=== PATIENT | female | born 1975 | race Caucasian/White ===

== ENCOUNTER 2021-11-28 12:48 | Inpatient (IN) | payer BC ==
[~2021-11-28] VITALS: Ht 157.5 cm; Wt 2.0 kg
--- NOTE | 2021-11-28 12:55 | NUR ---
SE RECIBE PTE ALERTA Y ORIENTADA X3 EN AMBULANCIA PARAMEDICOS REFIEREN QUE LA BUSCARON EN EL [facility] ,LA PTE REFIERE ESTAR MAREADA ,CAMINANDO CON DIFICULTAD.
--- NOTE | 2021-11-28 15:20 | NUR ---
PTE EVALUADA POR DRA. BARKER. MS. BHAT ORIENTA PTE SOBRE TRATAMIENTO A SEGUIR, EL CUAL REFIERE ENTENDER. LA MISMA COLECTA MUESTRAS Y CANALIZA PTE UTILIZANDO MEDIDAS ASEPTICAS, ADMINISTRA MEDICAMENTOS STEPHEN ORDEN MEDICA. PEND A REALIZAR CT .
--- NOTE | 2021-11-28 16:04 | NUR ---
MUESTRAS HEMOLIZADAS STEPHEN PERSONAL DE LABORATORIO. SE EXTRAEN MUESTRAS DE LAB [place] Y ESTAS SON ENVIADAS. PT EN CAMA EN ESPERA DE RESULTADOS DE LAB.
--- NOTE | 2021-11-28 22:02 | NUR ---
SE COORDINA MRI DE KUNAL CON EL CUAL AUTORIZA EL MISMO. SE NOTIFICA A SARA.
--- NOTE | 2021-11-28 22:50 | NUR ---
PERSONAL DE TETO INDICA QUE PTE NO RESPONDE.SE UBICA A PTE EN AREA DE DOLOR DE PECHO, SE CONECTA A MONITOR CARDIACO Y OXIMETRIA DE PULSO. S/V: B/P:198/110MMHG, P:127/MIN, R:0,SO2:77%. SE COMIENZA A VENTILAR. ORDENA INTUBACION. NOTIFICA A PERSONAL DE ANESTESIA. SE CONTINUA VENTILANDO A LA PTE. 2207PM- (PERSONAL DE ANESTESIA) INTUBA OROTRAQUEAL CON TUBO 7.0 ASISTIDO POR PERSONAL DE TERAPIA RESPIRATORIA JOHN Y ZULEIMA LOS CUALES CONECTAN AL VENTILADOR MECANICO CON LOS SIGUIENTES PARAMETROS: VT:500, R:16, PEEP:5, FIO2:100%. SE ENTREGA PTE A .
--- NOTE | 2021-11-29 01:22 | NUR ---
11PM-SE RECIBE PTE FEMENINA CONECTADA A MONIOR CARDIACO APOLONIA Y OXIMETRIA CONTINUA,ESTA NO RESPONDE A ESTIMULOS NI DOLOR,NI CORNEAL, BARNES REACCION PUPILAR MIDRIATICA,SE ECUENTRA CON TUBO OROTRAQUEAL #7 A 20 A LABIO.CON PARAMETROS ( VY-500,MODO-A/C,PEEP-5,RATE-6,FO2-100%). 1130PM-A REALIZA ORDENES Y SE COLOCA RUSSELL SIGUIENDO MEDOIDAS ASEPTICAS,SE COLOCA NGT CON SUCCION INTERMITENTE #18 EN KAREN LEXI.SE CANALIZA Y COLOCAN 3 VENOPUNCIONES EN PERIFERAL IZQUIERDA PATENTES LIBRES DE EDEMA Y ENROJECIMIENTO.SE COLOCAN RESTRIICIONES. 1AM-SE LE NOTIFICA A B/P DE PTE().THALIA REALIZA ORDEN DE LEVOPHED 8MG/250@10ML/HR EL CUAL SE COLOCA,PERONAL DE TERAPIA RSPIRATORIA ZULEIMA LE REALIZA ABG A PTE.
--- NOTE | 2021-11-29 05:29 | NUR ---
SE MANTIENE A PTE REALIZANDO S/V CADA 1 HR Y NOTIFICANDO A ,SE COMIENZA A PTE A REALIZAR CAMBIOS DE POSION CADA 2HRS,PTE CON RUSSELL,SE NOTIFICA A SE OBSERVA A PTE CON EDEMA EN EL BONNIE LADO LEXI,SE MANTIENE A PTE EN VIGILANCIA APOLONIA POR CAMBIOS.
--- NOTE | 2021-11-29 07:36 | NUR ---
SE RECIBE PACIENTE FEMENINA DE 46 ANOS DE EDAD EN CAMA CON BARANDAS ELEVADAS EN POSICION SEMI SENTADA. PACIENTE ENTUBADA CON TUBO OROTRAQUEAL #7 FIJADO A 20CM. CONECTADA A MONITOR CARDIACO, SATUROMETRIA APOLONIA, NASOGASTRICO EN FOSA NASAL IZQUIERDA CON SUCCION INTERMITENTE EL CUAL SE OBSERVA CON SECRESIONES DE COLOR SHELBY. AREA DE VENOPUNCION PATENTE EN MANO IZQUIERDA CON ANGIO #20 BAJANDO UN 0.9NSS A 175ML POR HORA Y LEVOPHED 8MG/250ML A 10ML POR HORA MARIA EUGENIA DE EDEMAS Y ENROJECIMIENTO. PACIENTE NO REACCIONA A ESTIMULOS FISICOS NI VERBALES. PACIENTE NO PRESENTA REACCION PUPILAR. PACIENTE SE OBSERVA CON BONNIE EDEMATOSO. SE OBSERVA RUSSELL INSERTADO CON RETORNO SRINIVAS. SE ALTHEA SIGNOS VITALES. SE MANTIENE PACIENTE EN OBSERVACION POR CAMBIOS.
== END 2021-12-03 17:10 | disposition expired | DRG 64 ==
LOC: ER 12:48 → ICU 11-29 12:38 → ICU-2 11-29 12:38 → ICU 11-30 05:12
PROVIDERS: ADMIT Internal Medicine; ATTEND Internal Medicine
PROC: BW28ZZZ Computerized Tomography (CT Scan) of Head (ICD-10-PCS; 2021-11-28)
PROC: 3E0F7GC Introduction of Other Therapeutic Substance into Respiratory Tract, Via Natural or Artificial Opening (ICD-10-PCS; 2021-11-28)
PROC: 4A12X4Z Monitoring of Cardiac Electrical Activity, External Approach (ICD-10-PCS; 2021-11-28)
PROC: 0BH17EZ Insertion of Endotracheal Airway into Trachea, Via Natural or Artificial Opening (ICD-10-PCS; principal; 2021-11-29)
PROC: 5A1945Z Respiratory Ventilation, 24-96 Consecutive Hours (ICD-10-PCS; 2021-11-29)
PROC: BW28ZZZ Computerized Tomography (CT Scan) of Head (ICD-10-PCS; 2021-11-29)
PROC: BW20YZZ Computerized Tomography (CT Scan) of Abdomen using Other Contrast (ICD-10-PCS; 2021-12-01)
PROC: 3E0F7SF Introduction of Other Gas into Respiratory Tract, Via Natural or Artificial Opening (ICD-10-PCS; 2021-12-01)
PROC: B24BZZZ Ultrasonography of Heart with Aorta (ICD-10-PCS; 2021-12-02)
DX: I60.8 Other nontraumatic subarachnoid hemorrhage (principal); J96.00 Acute respiratory failure, unspecified whether with hypoxia or hypercapnia; B37.1 Pulmonary candidiasis; E87.1 Hypo-osmolality and hyponatremia; E87.2 Acidosis; D32.0 Benign neoplasm of cerebral meninges; I46.8 Cardiac arrest due to other underlying condition; E86.0 Dehydration; Z20.822 Contact with and (suspected) exposure to COVID-19